=== PATIENT | male | born 1995 | race Caucasian/White ===

== ENCOUNTER 2021-08-30 08:34 | Inpatient (IN) | payer MEDICARE, MEDICAID ==
[~2021-08-30] VITALS: Ht 180.3 cm; Wt 89.8 kg
[2021-08-30 09:11] LABS: BASOPHILS % (AUTO) 0.6 % (0.0-2.0); EOSINOPHILS % (AUTO) 1.6 % (1.0-6.0); HEMATOCRIT 48.3 % (41-53); HEMOGLOBIN 16.9 g/dL (13.5-17.5); LYMPHOCYTES # (AUTO) 1.6 K/uL (1.0-4.8); MEAN CORPUSCULAR HEMOGLOBIN 30.1 pg (26.0-34.0); MEAN CORPUSCULAR HGB CONC 34.9 G/dL (31.0-37.0); MEAN CORPUSCULAR VOLUME 86 fL (80-100); MONOCYTES # (AUTO) 0.6 K/uL (0.1-1.0); MONOCYTES % (AUTO) 7.2 % (2.0-9.0); NEUTROPHILS % (AUTO) 71.6 % (40.0-70.0); PLATELET COUNT (AUTO) 199 K/uL (150-450); RED BLOOD CELL COUNT(AUTO) 5.61 MIL/uL (4.50-5.90); RED CELL DISTRIBUTION WIDTH 13.7 % (11.5-14.5)
[2021-08-30 09:18] LABS: ANION GAP 7 mmol/L (8-16); CALCIUM, TOTAL 8.9 mg/dL (8.8-10.5); CARBON DIOXIDE 32 mmol/L (22-29); CHLORIDE 104 mmol/L (98-107); CREATININE 0.98 mg/dL (0.60-1.30); GLOMERULAR FILTR. RATE CALC > 60 mL/min (>60); GLUCOSE,RANDOM 73 mg/dL (70-110); POTASSIUM 4.3 mmol/L (3.5-5.1); SODIUM SERUM 143 mmol/L (136-145); UREA NITROGEN, BLOOD 11 mg/dL (7-18)
[2021-08-30 09:26] LABS: ALANINE AMINOTRANSFERASE 26 U/L (12-78); ALKALINE PHOSPHATASE 67 U/L (46-116); ASPARTATE AMINOTRANSFERASE < 5 U/L (15-37); BILIRUBIN,TOTAL 0.4 mg/dL (0.1-1.0); TOTAL PROTEIN, SERUM 7.1 g/dL (6.4-8.2)
[2021-08-30 10:57] LABS: AMPHET/METH SCREEN,URINE NEGATIVE (NEGATIVE); BARBITURATE SCREEN, URINE NEGATIVE (NEGATIVE); BENZODIAZEPINES SCREEN,URINE NEGATIVE (NEGATIVE); CANNABINOID SCREEN,URINE NEGATIVE (NEGATIVE); COCAINE SCREEN,URINE NEGATIVE (NEGATIVE); METHADONE SCREEN, URINE NEGATIVE (NEGATIVE); OPIATE SCREEN,URINE NEGATIVE (NEGATIVE)
[2021-08-30 11:03] LABS: PHENCYCLIDINE SCREEN,URINE NEGATIVE (NEGATIVE)
[2021-08-30] MEDS ORDERED: HALOPERIDOL 5 MG TABLET PO PRN (11:30)
[2021-08-30] MEDS ORDERED: ZOLPIDEM TARTRATE 10 MG TABLET PO PRN (11:30)
[2021-08-30 12:16] LABS: COVID AG,FIA SOURCE NASOPHARYNGEAL
[2021-08-30 16:15] VITALS: BP 125/74
[2021-08-30] MEDS ORDERED: NICOTINE 14 MG/24 HOUR PATCH TD SCH (17:00)
[2021-08-30] MEDS: LORazepam 2 MG TABLET PO PRN (18:40)
[2021-08-31 01:07] VITALS: BP 118/68
[2021-08-31] MEDS ORDERED: LOPERAMIDE HCL 2 MG CAPSULE PO PRN (06:15)
[2021-08-31] MEDS ORDERED: ALBUTEROL SULFATE HFA 90 MCG/PUFF 8 GM INHALER IH PRN (06:15)
[2021-08-31] MEDS ORDERED: MAG HYDROX/AL HYDROX/SIMETH ES 30 ML SUSPENSION UDCUP PO PRN (06:15)
[2021-08-31] MEDS ORDERED: GuaiFENesin/D-METHORPHAN [SUGAR-FREE] 200-20MG/10 ML SYRUP UDCUP PO PRN (06:15)
[2021-08-31] MEDS ORDERED: ACETAMINOPHEN 325 MG TABLET PO PRN (06:15)
[2021-08-31] MEDS ORDERED: IBUPROFEN 400 MG TABLET PO PRN (06:15)
[2021-08-31] MEDS ORDERED: PETROLATUM,WHITE 28 GM JELLY TP PRN (06:15)
[2021-08-31] MEDS ORDERED: DOCUSATE SODIUM 100 MG CAPSULE PO PRN (06:15)
[2021-08-31] MEDS ORDERED: CloNIDine HCL 0.1 MG TABLET PO PRN (06:15)
[2021-08-31] MEDS ORDERED: MAGNESIUM HYDROXIDE SUSPENSION 30 ML UDCUP PO PRN (06:15)
[2021-08-31] MEDS ORDERED: ONDANSETRON HCL 4 MG TABLET PO PRN (06:15)
[2021-08-31 07:29] LABS: HEMOGLOBIN A1C 5.4 % (3.8-5.6)
[2021-08-31 07:54] LABS: THYROID STIMULATING HORMONE 1.51 uIU/mL (0.36-3.74)
[2021-08-31 08:04] VITALS: BP 119/67
[2021-08-31] MEDS: LORazepam 2 MG TABLET PO PRN (13:51)
[2021-08-31] MEDS: ARIPiprazole 10 MG TABLET PO SCH (15:40)
[2021-08-31] MEDS: NICOTINE 14 MG/24 HOUR PATCH TD PRN (17:14)
[2021-08-31 17:30] VITALS: BP 118/56
[2021-09-01 05:16] VITALS: BP 114/70
[2021-09-01 08:03] VITALS: BP 112/61
[2021-09-01] MEDS: SERTRALINE HCL 50 MG TABLET PO SCH (08:05)
[2021-09-01] MEDS: ARIPiprazole 10 MG TABLET PO SCH (08:05)
[2021-09-01 16:01] VITALS: BP 134/69
[2021-09-01] MEDS: NICOTINE 14 MG/24 HOUR PATCH TD PRN (17:16)
[2021-09-01] MEDS: LORazepam 2 MG TABLET PO PRN (17:19)
[2021-09-02 05:23] VITALS: BP 121/78
[2021-09-02 08:05] VITALS: BP 128/70
[2021-09-02] MEDS: SERTRALINE HCL 50 MG TABLET PO SCH (08:41)
[2021-09-02] MEDS: ARIPiprazole 10 MG TABLET PO SCH (08:41)
[2021-09-02 16:02] VITALS: BP 128/63
[2021-09-02] MEDS: LORazepam 2 MG TABLET PO PRN (17:37)
[2021-09-02] MEDS: NICOTINE 14 MG/24 HOUR PATCH TD PRN (17:37)
[2021-09-03 00:17] VITALS: BP 118/66
[2021-09-03 08:28] VITALS: BP 113/74
[2021-09-03] MEDS: ARIPiprazole 10 MG TABLET PO SCH (09:14)
[2021-09-03] MEDS: SERTRALINE HCL 50 MG TABLET PO SCH (09:14)
[2021-09-03] MEDS ORDERED: ARIP10TA38 PO (11:15)
[2021-09-03] MEDS ORDERED: SERT-158 PO (11:16)
[2021-09-04] MEDS ORDERED: SERT-439 PO (06:16)
[2021-09-04] MEDS ORDERED: ARIP10TA38 PO (06:16)
== END 2021-09-03 14:00 | disposition home or self-care (01) | DRG 885 ==
LOC: EMS 08:39 → B2X 11:49
PROVIDERS: ADMIT Psychiatry & Neurology Psychiatry; ATTEND Psychiatry & Neurology Psychiatry
DX: F25.0 Schizoaffective disorder, bipolar type (principal); R45.851 Suicidal ideations; F10.10 Alcohol abuse, uncomplicated; F17.210 Nicotine dependence, cigarettes, uncomplicated; F15.10 Other stimulant abuse, uncomplicated; I95.9 Hypotension, unspecified; Z20.822 Contact with and (suspected) exposure to COVID-19; Y90.9 Presence of alcohol in blood, level not specified; F43.10 Post-traumatic stress disorder, unspecified; R45.850 Homicidal ideations; Z59.00 Homelessness unspecified; Z79.899 Other long term (current) drug therapy; Z91.51 Personal history of suicidal behavior; Z72.89 Other problems related to lifestyle; Z71.51 Drug abuse counseling and surveillance of drug abuser
CPT/HCPCS: 80053; 80061; 83036; 84443; 84481; 85025; 99285; G0480